=== PATIENT | male | born 1965 | race Caucasian/White ===

== ENCOUNTER → 2025-01-02 08:01 | Outpatient (REF) | payer BC, SELFPAY | LOC: HWRCS 08:01 | PROVIDERS: ATTENDING PHYSICIAN Internal Medicine Cardiovascular Disease; FAMILY PHYSICIAN Nurse Practitioner Adult Health | DX: R06.09 Other forms of dyspnea (principal) | CPT/HCPCS: 93306 ==

== ENCOUNTER → 2025-01-15 06:55 | Outpatient (REF) | payer BC, SELFPAY | LOC: RAD 06:55 | PROVIDERS: ATTENDING PHYSICIAN Internal Medicine Cardiovascular Disease; FAMILY PHYSICIAN Nurse Practitioner Adult Health | DX: I71.21 Aneurysm of the ascending aorta, without rupture (principal) | CPT/HCPCS: 71275; Q9967 ==

== ENCOUNTER → 2025-01-22 06:33 | Outpatient (REF) | payer BC, SELFPAY | LOC: RAD 06:33 | PROVIDERS: ATTENDING PHYSICIAN Internal Medicine Cardiovascular Disease; FAMILY PHYSICIAN Nurse Practitioner Adult Health | DX: R93.1 Abnormal findings on diagnostic imaging of heart and coronary circulation (principal); I71.21 Aneurysm of the ascending aorta, without rupture | CPT/HCPCS: 76770 ==

== ENCOUNTER → 2025-03-26 07:20 | Outpatient (REF) | payer BC, SELFPAY | LOC: RCS 07:20 | PROVIDERS: ATTENDING PHYSICIAN Internal Medicine Cardiovascular Disease; FAMILY PHYSICIAN Nurse Practitioner Adult Health | DX: R06.09 Other forms of dyspnea (principal); R93.1 Abnormal findings on diagnostic imaging of heart and coronary circulation | CPT/HCPCS: 78452; 93017; A9500 ==